=== PATIENT | female | born 1985 | race Caucasian/White ===

== ENCOUNTER 2016-05-12 19:22 | Emergency (ER) | payer OTHER ==
[~2016-05-12] VITALS: Ht 157.5 cm; Wt 81.6 kg
[2016-05-12 19:32] VITALS: BP 130/100
== END 2016-05-12 19:44 | disposition left against medical advice (07) ==
LOC: ER 19:22 → EDBD 19:22 → ER 19:44
DX: R56.9 Unspecified convulsions (principal); Z53.21 Procedure and treatment not carried out due to patient leaving prior to being seen by health care provider